=== PATIENT | male | born 1955 | race Caucasian/White ===

== ENCOUNTER 2017-04-08 13:35 | Inpatient (IN) | payer BC ==
[2017-04-08 14:36] LABS: BILIRUBIN,URINE MODERATE (NEG); CLARITY,URINE CLEAR; COLOR,URINE ORANGE; PH,URINE 5.5; PROTEIN,URINE NEGATIVE (NEG-TRACE)
[2017-04-08 14:37] LABS: AMPHETAMINE/METHAMPHETAMINE NEG (NEG); BARBITURATES NEG (NEG); BENZODIAZEPINES NEG (NEG); CANNABINOIDS NEG (NEG); COCAINE NEG (NEG); ETHANOL, URINE NEG (NEG); METHADONE NEG (NEG); OPIATES NEG (NEG); PHENCYCLIDINE NEG (NEG)
[2017-04-08 14:41] LABS: MAGNESIUM 1.9 mg/dL (1.8-2.4)
[2017-04-08 14:49] LABS: GLUCOSE,URINE NEGATIVE (NEG); NITRITE,URINE NEGATIVE (NEG)
[2017-04-08 14:52] LABS: BACTERIA,URINE 0 /HPF (0-FEW); SQUAMOUS EPITHELIAL CELL,UR FEW /LPF; WBC,URINE 0 /HPF (0-4)
[2017-04-08 14:53] LABS: TROPONINI < 0.017 ng/mL (0.000-0.055)
[2017-04-08 14:56] LABS: THYROID STIM HORMONE (TSH) 2.799 uIU/mL (0.358-3.74)
[2017-04-08 14:57] LABS: NT-PRO BNP 188 pg/mL (0-124)
[2017-04-08 14:57] LABS: CKMB MASS 1.6 ng/mL (0.0-3.6); CREATINE KINASE 161 U/L (39-308)
[2017-04-08 15:49] LABS: ADD MAN DIFF? NO
[2017-04-08 15:53] LABS: BASO % 1 % (0-3); EOS # 0.1 x10^3/uL (0.0-0.7); EOS % 1 % (0-3); HEMATOCRIT 38.2 % (39.0-53.0); HEMOGLOBIN 13.1 g/dL (13.0-17.5); LYMPH # 0.8 x10^3/uL (1.0-4.8); LYMPH % 20 % (24-48); MEAN CORPUSCULAR HEMOGLOBIN 36 pg (25-35); MEAN CORPUSCULAR HGB CONC 34 g/dL (31-37); MEAN CORPUSCULAR VOLUME 106 fL (79-100); MONO # 0.4 x10^3/uL (0.0-1.1); MONO % 10 % (0-9); NEUT # 2.6 x10^3uL (1.8-7.7); NEUT % 68 % (31-73); PLATELET COUNT 47 x10^3/uL (140-400); RED BLOOD COUNT 3.62 x10^6/uL (4.30-5.70); RED CELL DISTRIBUTION WIDTH 15.2 % (11.5-14.5); WHITE BLOOD COUNT 3.8 x10^3/uL (4.0-11.0)
[2017-04-08 16:05] LABS: OVALOCYTES OCC; PLT ESTIMATE DECREASED (ADEQUATE); POLYCHROMASIA SLIGHT; TEAR DROP CELLS OCC
[2017-04-08 16:16] LABS: ANION GAP 8 (6-14); BLOOD UREA NITROGEN 7 mg/dL (8-26); BUN/CREATININE RATIO 9 (6-20); CALCIUM 8.2 mg/dL (8.5-10.1); CARBON DIOXIDE 26 mmol/L (21-32); CHLORIDE 106 mmol/L (98-107); CREATININE 0.8 mg/dL (0.7-1.3); GFR 98.3; GLUCOSE 172 mg/dL (70-99); POTASSIUM 4.1 mmol/L (3.5-5.1); SODIUM 140 mmol/L (136-145)
[2017-04-08 16:21] LABS: ALBUMIN 2.6 g/dL (3.4-5.0); ALBUMIN/GLOBULIN RATIO 0.5 (1.0-1.7); ALK PHOS 239 U/L (46-116); ALT (SGPT) 30 U/L (16-63); AST (SGOT) 60 U/L (15-37); CHOLESTEROL 114 mg/dL (0-200); HDLC 23 mg/dL (40-60); LDLC 78 mg/dL (0-100); NON-HDL CHOLESTEROL 91 mg/dL (0-129); TOTAL BILIRUBIN 2.8 mg/dL (0.2-1.0); TOTAL PROTEIN 7.4 g/dL (6.4-8.2); TRIGLYCERIDES 66 mg/dL (0-150); VLDLC 13 mg/dL (0-40)
[2017-04-08] MEDS ORDERED: METOPROLOL TARTRATE 5 MG/5 ML VIAL. IVP (16:30)
[2017-04-08] MEDS ORDERED: ACETAMINOPHEN 325 MG TABLET. PO ×2 (16:30→16:45)
[2017-04-08] MEDS ORDERED: ONDANSETRON PF 4 MG/2 ML VIAL. IV ×2 (16:30→16:45)
[2017-04-08] MEDS ORDERED: MORPHINE SULFATE 2 MG/ML DISP.SYRIN. IV (16:45)
[2017-04-08] MEDS ORDERED: hydrALAZINE 20 MG/ML VIAL. IVP (16:45)
[2017-04-08] MEDS ORDERED: DOCUSATE SODIUM 100 MG CAPSULE. PO (16:45)
[2017-04-08 18:02] LABS: INR 1.6 (0.8-1.1); PROTHROMBIN TIME PATIENT 18.3 SEC (11.7-14.0)
[2017-04-08] MEDS: METOPROLOL TART IMMED RELEASE 25 MG TABLET. PO (20:14)
[2017-04-08] MEDS: traMADol 50 MG TABLET PO (20:14)
[2017-04-09 06:18] LABS: ADD MAN DIFF? NO
[2017-04-09 06:45] LABS: ANION GAP 8 (6-14); BLOOD UREA NITROGEN 9 mg/dL (8-26); CALCIUM 8.4 mg/dL (8.5-10.1); CARBON DIOXIDE 23 mmol/L (21-32); CHLORIDE 106 mmol/L (98-107); CREATININE 0.7 mg/dL (0.7-1.3); GFR 114.6; GLUCOSE 117 mg/dL (70-99); MAGNESIUM 1.8 mg/dL (1.8-2.4); SODIUM 137 mmol/L (136-145)
[2017-04-09 06:48] LABS: % SAT IRON 90 % (15-34); IRON,SERUM 150 ug/dL (65-175)
[2017-04-09 06:55] LABS: INR 1.7 (0.8-1.1); PROTHROMBIN TIME PATIENT 18.8 SEC (11.7-14.0)
[2017-04-09 07:04] LABS: FERRITIN 568 ng/mL (26-388)
[2017-04-09 07:06] LABS: BASO % 1 % (0-3); EOS # 0.1 x10^3/uL (0.0-0.7); EOS % 3 % (0-3); HEMATOCRIT 36.1 % (39.0-53.0); HEMOGLOBIN 12.5 g/dL (13.0-17.5); LYMPH % 28 % (24-48); MEAN CORPUSCULAR HEMOGLOBIN 36 pg (25-35); MEAN CORPUSCULAR HGB CONC 35 g/dL (31-37); MEAN CORPUSCULAR VOLUME 105 fL (79-100); MONO # 0.4 x10^3/uL (0.0-1.1); MONO % 11 % (0-9); NEUT % 58 % (31-73); PLATELET COUNT 46 x10^3/uL (140-400); RED BLOOD COUNT 3.44 x10^6/uL (4.30-5.70); RED CELL DISTRIBUTION WIDTH 15.3 % (11.5-14.5); WHITE BLOOD COUNT 3.5 x10^3/uL (4.0-11.0)
[2017-04-09 08:20] LABS: FOLATE 6.06 ng/ml (3.2-20.0)
[2017-04-09 08:20] LABS: VITAMIN-B12 1067 pg/mL (247-911)
[2017-04-09] MEDS: METOPROLOL TART IMMED RELEASE 25 MG TABLET. PO ×2 (08:30→20:41)
[2017-04-09] MEDS: TAMSULOSIN 0.4 MG CAP.ER.24H. PO (08:30)
[2017-04-09] MEDS: traMADol 50 MG TABLET PO ×2 (08:33→18:14)
[2017-04-09 10:15] LABS: RETIC COUNT 1.6 % (0.5-2.5)
[2017-04-09 10:27] LABS: FIBRINOGEN 184 mg/dL (200-440)
[2017-04-09 10:47] LABS: PARTIAL THROMBOPLASTIN TIME 43 SEC (24-38)
[2017-04-09] MEDS: FUROSEMIDE 20 MG TABLET PO (12:49)
[2017-04-09] MEDS ORDERED: HALOPERIDOL LACTATE 5 MG/ML VIAL. IVP (13:15)
[2017-04-09] MEDS ORDERED: diphenhydrAMINE 50 MG/ML VIAL IVP (13:15)
[2017-04-09] MEDS: PHYTONADIONE (VIT K1) IV 10 MG in IV DEXTROSE 5% 50 ML IV (14:22)
[2017-04-09] MEDS: MULTIVIT INFUSN,ADULT 4,VIT K 10 ML, THIAMINE 100 MG, FOLIC ACID 1 MG in IV NORMAL SALI... IV (14:25)
[2017-04-09] MEDS: ENOXAPARIN 40 MG/0.4 ML SYRINGE. SQ (14:26)
[2017-04-09] MEDS: VITAMIN B12,B9,B6 COMPLEX 1 TABLET. PO (14:26)
[2017-04-10 01:12] LABS: HCV ANTIBODY 0.1 s/co ratio (0.0-0.9); HEP A IGM ABDY Negative (Negative); HEP B SURFACE AG Negative (Negative)
[2017-04-10 04:48] LABS: ADD MAN DIFF? NO
[2017-04-10 04:54] LABS: BASO % 1 % (0-3); EOS # 0.1 x10^3/uL (0.0-0.7); EOS % 2 % (0-3); HEMATOCRIT 34.3 % (39.0-53.0); LYMPH # 1.2 x10^3/uL (1.0-4.8); LYMPH % 34 % (24-48); MEAN CORPUSCULAR HEMOGLOBIN 37 pg (25-35); MEAN CORPUSCULAR HGB CONC 35 g/dL (31-37); MEAN CORPUSCULAR VOLUME 105 fL (79-100); MONO # 0.4 x10^3/uL (0.0-1.1); MONO % 11 % (0-9); NEUT # 1.8 x10^3uL (1.8-7.7); NEUT % 52 % (31-73); PLATELET COUNT 44 x10^3/uL (140-400); RED BLOOD COUNT 3.26 x10^6/uL (4.30-5.70); RED CELL DISTRIBUTION WIDTH 15.6 % (11.5-14.5); WHITE BLOOD COUNT 3.5 x10^3/uL (4.0-11.0)
[2017-04-10 05:05] LABS: INR 1.8 (0.8-1.1); PROTHROMBIN TIME PATIENT 19.4 SEC (11.7-14.0)
[2017-04-10 05:38] LABS: ALBUMIN/GLOBULIN RATIO 0.5 (1.0-1.7); ALK PHOS 170 U/L (46-116); ALT (SGPT) 26 U/L (16-63); ANION GAP 6 (6-14); AST (SGOT) 48 U/L (15-37); BLOOD UREA NITROGEN 11 mg/dL (8-26); BUN/CREATININE RATIO 14 (6-20); CALCIUM 7.9 mg/dL (8.5-10.1); CARBON DIOXIDE 26 mmol/L (21-32); CHLORIDE 104 mmol/L (98-107); CREATININE 0.8 mg/dL (0.7-1.3); GFR 98.3; GLUCOSE 98 mg/dL (70-99); POTASSIUM 3.8 mmol/L (3.5-5.1); SODIUM 136 mmol/L (136-145); TOTAL BILIRUBIN 3.3 mg/dL (0.2-1.0); TOTAL PROTEIN 6.2 g/dL (6.4-8.2)
[2017-04-10] MEDS: METOPROLOL TART IMMED RELEASE 25 MG TABLET. PO (08:43)
[2017-04-10] MEDS: FUROSEMIDE 20 MG TABLET PO (08:43)
[2017-04-10] MEDS: TAMSULOSIN 0.4 MG CAP.ER.24H. PO (08:43)
[2017-04-10] MEDS: VITAMIN B12,B9,B6 COMPLEX 1 TABLET. PO (08:43)
[2017-04-10] MEDS: MULTIVIT INFUSN,ADULT 4,VIT K 10 ML, THIAMINE 100 MG, FOLIC ACID 1 MG in IV NORMAL SALI... IV (08:43)
[2017-04-10 15:33] LABS: HCV ANTIBODY 0.1 s/co ratio (0.0-0.9); HEP A IGM ABDY Negative (Negative); HEP B SURFACE AG Negative (Negative)
== END 2017-04-10 13:00 | disposition home or self-care (01) | DRG 896 ==
LOC: ER 13:35 → 2 SOUTH 15:10
PROVIDERS: Internal Medicine
DX: F10.10 Alcohol abuse, uncomplicated (principal); I50.31 Acute diastolic (congestive) heart failure; D61.818 Other pancytopenia; E44.0 Moderate protein-calorie malnutrition; D68.9 Coagulation defect, unspecified; I48.91 Unspecified atrial fibrillation; D53.9 Nutritional anemia, unspecified; M48.02 Spinal stenosis, cervical region; F10.188 Alcohol abuse with other alcohol-induced disorder; D75.89 Other specified diseases of blood and blood-forming organs; E66.9 Obesity, unspecified; G89.29 Other chronic pain; Z68.35 Body mass index [BMI] 35.0-35.9, adult; M48.061 Spinal stenosis, lumbar region without neurogenic claudication; N40.1 Benign prostatic hyperplasia with lower urinary tract symptoms; E83.119 Hemochromatosis, unspecified
CPT/HCPCS: 36415; 71045; 76705; 80048; 80053; 80061; 80074; 80307; 81001; 81256; 82553; 82607; 82728; 82746; 83540; 83550; 83735; 83880; 84443; 84484; 85025; 85045; 85384; 85610; 85730; 87641; 93005; 93306; 96372; 99285; 99285-25; J1650; J3430; J7030

== ENCOUNTER → 2017-05-27 | Outpatient (CLI) | payer BC ==
[2017-05-27] MEDS: REGADENOSON 0.4 MG/5 ML DISP.SYRIN. IV (10:35)
== END | disposition home or self-care (01) ==
LOC: NM 10:02
DX: I48.92 Unspecified atrial flutter (principal); Z79.01 Long term (current) use of anticoagulants
CPT/HCPCS: 78452; 93017; 96374; 96375; 96376; A9500; J2785

== ENCOUNTER → 2017-07-29 | Outpatient (CLI) | payer BC ==
[2017-07-29 11:58] LABS: ADD MAN DIFF? NO
[2017-07-29 12:02] LABS: BASO % 1 % (0-3); EOS # 0.1 x10^3/uL (0.0-0.7); EOS % 1 % (0-3); HEMATOCRIT 39.6 % (39.0-53.0); HEMOGLOBIN 13.8 g/dL (13.0-17.5); LYMPH # 1.1 x10^3/uL (1.0-4.8); LYMPH % 16 % (24-48); MEAN CORPUSCULAR HEMOGLOBIN 37 pg (25-35); MEAN CORPUSCULAR HGB CONC 35 g/dL (31-37); MEAN CORPUSCULAR VOLUME 107 fL (79-100); MONO # 0.6 x10^3/uL (0.0-1.1); MONO % 9 % (0-9); NEUT # 4.9 x10^3uL (1.8-7.7); NEUT % 74 % (31-73); PLATELET COUNT 97 x10^3/uL (140-400); RED BLOOD COUNT 3.69 x10^6/uL (4.30-5.70); RED CELL DISTRIBUTION WIDTH 15.2 % (11.5-14.5); WHITE BLOOD COUNT 6.6 x10^3/uL (4.0-11.0)
[2017-07-29 12:12] LABS: INR 1.6 (0.8-1.1); PROTHROMBIN TIME PATIENT 18.6 SEC (11.7-14.0)
[2017-07-29 12:13] LABS: PARTIAL THROMBOPLASTIN TIME 34 SEC (24-38)
[2017-07-29 12:42] LABS: ALBUMIN 2.1 g/dL (3.4-5.0); ALBUMIN/GLOBULIN RATIO 0.4 (1.0-1.7); ALK PHOS 206 U/L (46-116); ALT (SGPT) 24 U/L (16-63); ANION GAP 9 (6-14); AST (SGOT) 46 U/L (15-37); BLOOD UREA NITROGEN 14 mg/dL (8-26); BUN/CREATININE RATIO 14 (6-20); CALCIUM 8.1 mg/dL (8.5-10.1); CARBON DIOXIDE 23 mmol/L (21-32); CHLORIDE 102 mmol/L (98-107); GLUCOSE 193 mg/dL (70-99); POTASSIUM 3.8 mmol/L (3.5-5.1); SODIUM 134 mmol/L (136-145); TOTAL BILIRUBIN 2.8 mg/dL (0.2-1.0)
[2017-07-29 23:12] LABS: MRSA BY PCR Negative (Negative)
== END | disposition home or self-care (01) ==
LOC: SURGPAT 10:35
DX: Z01.818 Encounter for other preprocedural examination (principal); M47.892 Other spondylosis, cervical region; M48.02 Spinal stenosis, cervical region
CPT/HCPCS: 36415; 80053; 85025; 85610; 85730; 87641

== ENCOUNTER → 2017-07-31 | Outpatient (CLI) | payer BC ==
[2017-07-31 11:52] LABS: INR 1.6 (0.8-1.1)
== END | disposition home or self-care (01) ==
LOC: LAB 11:03
DX: R79.1 Abnormal coagulation profile (principal)
CPT/HCPCS: 36415; 85610

== ENCOUNTER 2017-08-09 08:34 | Outpatient (CLI) | payer BC ==
[2017-08-09 09:04] LABS: ADD MAN DIFF? NO
[2017-08-09 09:07] LABS: BASO % 1 % (0-3); EOS # 0.1 x10^3/uL (0.0-0.7); EOS % 2 % (0-3); HEMATOCRIT 34.8 % (39.0-53.0); HEMOGLOBIN 12.1 g/dL (13.0-17.5); LYMPH % 30 % (24-48); MEAN CORPUSCULAR HEMOGLOBIN 37 pg (25-35); MEAN CORPUSCULAR HGB CONC 35 g/dL (31-37); MEAN CORPUSCULAR VOLUME 106 fL (79-100); MONO # 0.5 x10^3/uL (0.0-1.1); MONO % 15 % (0-9); NEUT # 1.8 x10^3uL (1.8-7.7); NEUT % 53 % (31-73); PLATELET COUNT 51 x10^3/uL (140-400); RED BLOOD COUNT 3.28 x10^6/uL (4.30-5.70); RED CELL DISTRIBUTION WIDTH 15.1 % (11.5-14.5); WHITE BLOOD COUNT 3.3 x10^3/uL (4.0-11.0)
[2017-08-09] MEDS ORDERED: LIDOCAINE WITH 8.4% SOD BICARB 3 ML DISP.SYRIN. (09:16)
[2017-08-09 09:37] LABS: INR 1.9 (0.8-1.1); PARTIAL THROMBOPLASTIN TIME 42 SEC (24-38); PROTHROMBIN TIME PATIENT 20.7 SEC (11.7-14.0)
[2017-08-09] MEDS: ALBUMIN HUMAN 25% 100 ML IV ×2 (10:25)
[2017-08-09] MEDS: LIDOCAINE WITH 8.4% SOD BICARB 3 ML DISP.SYRIN. INJ (10:25)
[2017-08-09 11:07] LABS: BF CLARITY CLEAR; BF COLOR YELLOW; BF RBC COUNT 695 /cmm; BF SOURCE ASCITES; BF WBC COUNT 307 /cmm
[2017-08-09 11:08] LABS: BF MON % 33 %; BF OTHER % 59 %; BF PMN % 8 %
[2017-08-10 15:14] LABS: BODY FLUID ALBUMIN 0.7 g/dL (.)
== END 2017-08-09 11:55 | disposition home or self-care (01) ==
LOC: INTRAD 08:34
DX: K74.60 Unspecified cirrhosis of liver (principal); Z98.890 Other specified postprocedural states; I48.91 Unspecified atrial fibrillation; N40.0 Benign prostatic hyperplasia without lower urinary tract symptoms; M19.90 Unspecified osteoarthritis, unspecified site; Z72.89 Other problems related to lifestyle; F17.200 Nicotine dependence, unspecified, uncomplicated
CPT/HCPCS: 36415; 49083; 82042; 85025; 85610; 85730; 87071; 87075; 87205; 88112; 88305; 89050; P9046